=== PATIENT | female | born 1975 | race Caucasian/White ===

== ENCOUNTER 2017-07-25 15:54 | Emergency (ER) | payer OTHER ==
[2017-07-25 16:05] VITALS: TEMP 98.6
[2017-07-25] MEDS ORDERED: IPRATROPIUM/ALBUTEROL 3 ML DEYVIAL IH ONE (16:30)
--- NOTE | 2017-07-25 16:48 | EDPHY ---
H & P Time Seen by Provider: 07/25/17 16:10 HPI/ROS: The patient presents with a cough of 4 days duration dry and hacking in nature with mild wheezing. She has had episodes of reactive airway disease with URIs in the past and has used an albuterol inhaler in the past but does not have an MDI now. She notes no exacerbating factors for symptoms. She notes no other associated symptoms. She is a smoker and notes that her symptoms worsen when she smokes. She drove her self here by private vehicle for further evaluation. ROS: Constitutional: No fevers chills or fatigue. HEENT: No nasal congestion. No facial pain. No sore throat. Pulmonary: No pleuritic pain. No respiratory distress. Cardiovascular: No chest pain. No heart palpitations lightheadedness or or lower extremity swelling. GI: No abdominal pain, nausea vomiting Integumentary: No skin rash Neuro: No complaints 10 point ROS is otherwise negative. Smoking Status: Current every day smoker Physical Exam: Physical Exam Vital signs are normal. General: No acute distress HEENT: Nose: Clear discharge bilaterally. No sinus tenderness to percussion. Ears: External canals and tympanic membranes are clear with no erythema or abnormal findings bilaterally. Oropharynx: No erythema or exudates. No dysphonia. No drooling or stridor. Eyes: Pupils equal and react to light. Extraocular motions are intact. Neck: Supple with no meningismus. No lymphadenopathy Lungs: Wheezing bilaterally. No rhonchi. No rales. No respiratory distress. Cardiac: Regular rate and rhythm with no murmur gallop or rub no lower extremity swelling or calf tenderness. Skin: No rash or pallor. Neuro: Alert with no focal deficits noted. Initial differential diagnosis: URI with reactive airway disease, acute bronchitis, reactive airway disease Constitutional: Initial Vital Signs Temperature (C) 37 C 07/25/17 16:01 Heart Rate 72 07/25/17 16:01 Respiratory Rate 20 07/25/17 16:01 Blood Pressure 157/100 H 07/25/17 16:01 O2 Sat (%) 97 07/25/17 16:01 O2 Delivery Mode Room Air Allergies/Adverse Reactions: aspirin Allergy (Verified 07/25/17 16:06) INCREASED BLEEDING AND BRUISING Home Medications: Medication Instructions Recorded Abilify 06/17/16 IMITREX 04/27/16 Singulair 04/27/16 Topamax 04/27/16 Zoloft 100mg (RX) 04/27/16 Albuterol Hfa Anes Only [Proair 2 puffs IH Q4 PRN #1 mdi 07/25/17 Hfa Icu (*)] Azithromycin [Zithromax] 250 mg PO DAILY #6 tab 07/25/17 Fluticasone Hfa 220 Mcg [Flovent 2 puffs IH DAILY #1 mdi 07/25/17 220 MCG Hfa MDI (*)] Melatonin 07/25/17 MDM/Departure - MDM Medications Given: Discontinued Medications Albuterol/Ipratropium (Duoneb) 3 ml IH EDNOW ONE Stop: 07/25/17 16:31 Last Admin: 07/25/17 16:33 Dose: 3 ml Differential Diagnosis: DuoNeb with increased aeration decreased wheeze subjective improvement I counseled the patient to quit smoking. Will start her on Zithromax antibiotic, albuterol inhaler and Flovent steroid inhaler if her symptoms are not resolving this week. She understands the need to follow up with primary care physician. She will return if she develops any significant worsening symptoms despite the treatment plan Discussion: [age]-year-old female here with cough mild wheeze with no clinical evidence of lower respiratory infection, sepsis or other concerning findings at this time. - Depart Disposition: Home, Routine, Self-Care Clinical Impression: Acute bronchitis Qualifiers: Bronchitis organism: unspecified organism Qualified Code(s): J20.9 - Acute bronchitis, unspecified Condition: Good Instructions: How to Stop Smoking (ED), Acute Bronchitis (ED) Additional Instructions: Diagnosis: Acute bronchitis Plan: Quit smoking Humidifier Albuterol inhaler spacer for cough, wheeze or shortness of breath Zithromax antibiotic If you cough does not resolve with that treatment over the next week then start Flovent steroid inhaler in addition. Follow up with primary care physician for any ongoing symptoms and for help with smoking cessation. Return emergency department if he have any significant worsening despite the treatment plan Prescriptions: Albuterol Hfa Anes Only [Proair Hfa Icu (*)] 2 puffs IH Q4 PRN #1 mdi PRN Reason: Wheezing Azithromycin [Zithromax] 250 mg PO DAILY #6 tab Fluticasone Hfa 220 Mcg [Flovent 220 MCG Hfa MDI (*)] 2 puffs IH DAILY #1 mdi Referrals: FER MARTINEZ [Primary Care Provider] - As per Instructions
[2017-07-25 17:14] VITALS: BP 130/85; PULSE 80; RESP 16; O2SAT 98
== END 2017-07-25 17:07 | disposition home or self-care (01) ==
LOC: CED 15:54
DX: J20.9 Acute bronchitis, unspecified (principal); F17.200 Nicotine dependence, unspecified, uncomplicated

== ENCOUNTER 2017-08-02 14:35 | Emergency (ER) | payer OTHER ==
[2017-08-02 14:48] VITALS: RESP 18; TEMP 98; O2SAT 97
[2017-08-02] MEDS ORDERED: SUMAtriptan 6 MG/0.5 ML VIAL SC ONE (15:09)
[2017-08-02] MEDS ORDERED: AMOXICILLIN/CLAVULANATE POT 875/125 MG TAB PO ONE (15:10)
[2017-08-02] MEDS ORDERED: ONDANSETRON DISINTEGRATING 4 MG TAB PO ONE (15:10)
--- NOTE | 2017-08-02 15:11 | EDPHY ---
H & P Stated Complaint: c/o migraine ANGELO since this am - Time Seen by Provider: 08/02/17 14:56 HPI/ROS: CHIEF COMPLAINT: Sinus infection, migraine headache HISTORY OF PRESENT ILLNESS: The patient is a 41-year-old female who comes to the emergency department complaining of a migraine headache primarily in the left side of her head. She states that this is typical for her migraines. She ran out of her Imitrex today and did not realize it. She states that it usually works for the quickly for her. She thinks her migraine was triggered by a sinus infection. She states that for the last 2 weeks she has had a mild cough. She was seen and given a Z-Louis. The cough improved but then it developed into her left sinuses. She has been able to drain her right sinus with a Neti pot but not her left. She has pressure and pain in that area. No vision changes. No fever. REVIEW OF SYSTEMS: Constitutional: denies: chills, fever, recent illness, recent injury EENTM: See HPI Respiratory: denies: cough, shortness of breath Cardiac: denies: chest pain, irregular heart rate, lightheadedness, palpitations Gastrointestinal/Abdominal: denies: abdominal pain, diarrhea, nausea, vomiting, blood streaked stools Genitourinary: denies: dysuria, frequency, hematuria, pain Musculoskeletal: denies: joint pain, muscle pain Skin: denies: lesions, rash, jaundice, bruising Neurological: See HPI denies: numbness, paresthesia, tingling, dizziness, weakness Hematologic/Lymphatic: denies: blood clots, easy bleeding, easy bruising Immunologic/allergic: denies: HIV/AIDS, transplant EXAM: GENERAL: Well-appearing, well-nourished and in no acute distress. HEAD: Atraumatic, normocephalic. EYES: Pupils equal round and reactive to light, extraocular movements intact, sclera anicteric, conjunctiva are normal. ENT: Mild left sinus tenderness, TMs effusion on left, nares patent, oropharynx clear without exudates. Moist mucous membranes. NECK: Normal range of motion, supple without lymphadenopathy or JVD. LUNGS: Breath sounds clear to auscultation bilaterally and equal. No wheezes rales or rhonchi. HEART: Regular rate and rhythm without murmurs, rubs or gallops. ABDOMEN: Soft, nontender, normoactive bowel sounds. No guarding, no rebound. No masses appreciated. BACK: No CVA tenderness, no spinal tenderness, step-offs or deformities EXTREMITIES: Normal range of motion, no pitting or edema. No clubbing or cyanosis. NEUROLOGICAL: Cranial nerves II through XII grossly intact. Normal speech, normal gait. 5/5 strength, normal movement in all extremities, normal sensation PSYCH: Normal mood, normal affect. SKIN: Warm, dry, normal turgor, no visible rashes or lesions. Source: Patient Exam Limitations: No limitations - Personal History LMP (Females 10-55): Unknown Current Tetanus Diphtheria and Acellular Pertussis (TDAP): Yes - Medical/Surgical History Hx Asthma: Yes Hx Chronic Respiratory Disease: No Hx Diabetes: No Hx Cardiac Disease: No Hx Renal Disease: No Hx Cirrhosis: No Hx Alcoholism: No Hx HIV/AIDS: No Hx Splenectomy or Spleen Trauma: No Other PMH: THYROID, MIGRAINES, DEPRESSION, UTERINE ABLATION, ENDOMETRIOSIS, Lupus - Family History Significant Family History: No pertinent family hx - Social History Smoking Status: Current every day smoker Alcohol Use: Sober Drug Use: None Constitutional: Initial Vital Signs Temperature (C) 36.6 C 08/02/17 14:44 Heart Rate 85 08/02/17 14:44 Respiratory Rate 18 08/02/17 14:44 Blood Pressure 148/88 H 08/02/17 14:44 O2 Sat (%) 97 08/02/17 14:44 O2 Delivery Mode Room Air Allergies/Adverse Reactions: aspirin Allergy (Verified 07/25/17 16:06) INCREASED BLEEDING AND BRUISING Home Medications: Medication Instructions Recorded Abilify 04/27/16 IMITREX 04/27/16 Singulair 04/27/16 Topamax 04/27/16 Zoloft 100mg (RX) 04/27/16 Albuterol Hfa Anes Only [Proair 2 puffs IH Q4 PRN #1 mdi 07/25/17 Hfa Icu (*)] Fluticasone Hfa 220 Mcg [Flovent 2 puffs IH DAILY #1 mdi 07/25/17 220 MCG Hfa MDI (*)] Melatonin 07/25/17 Amoxicillin/Clavulanate Pot 875 mg PO BID #14 tab 08/02/17 [Augmentin 875Mg] Medical Decision Making ED Course/Re-evaluation: The patient has a migraine and she is requesting Imitrex. She states this is the only medication that works for her. I will give her some IM. She does not need a refill of her prescriptions. We also discussed the likelihood that her sinus infection is viral and this is why antibiotics did not work. She would like to try stronger antibiotic. We will try Augmentin . We discussed indications for returning. Differential Diagnosis: Partial list of the Differential diagnosis considered include but were not limited to; migraine, sinus infection and although unlikely based on the history and physical exam, I also considered pneumonia, intracranial infection. I discussed these differential diagnoses and the plan with the patient as well as the usual and expected course. The patient understands that the diagnosis is provisional and that in medicine we are not always correct and that further workup is often warranted. Usual and customary warnings were given. All of the patient's questions were answered. The patient was instructed to return to the emergency department should the symptoms at all worsen or return, otherwise to followup with the physician as we discussed. - Data Points Medications Given: Discontinued Medications Amoxicillin/Clavulanate Potassium (Augmentin 875mg) 875 mg PO EDNOW ONE PRN Reason: Protocol Stop: 08/02/17 15:11 Last Admin: 08/02/17 15:19 Dose: 875 mg Ondansetron HCl (Zofran Odt) 4 mg PO EDNOW ONE Stop: 08/02/17 15:11 Last Admin: 08/02/17 15:19 Dose: 4 mg Sumatriptan Succinate (Imitrex Sc Injection) 6 mg SC EDNOW ONE Stop: 08/02/17 15:10 Last Admin: 08/02/17 15:20 Dose: 6 mg Departure - Departure Disposition: Home, Routine, Self-Care Clinical Impression: Migraine Qualifiers: Migraine type: with aura Status migrainosus presence: without status migrainosus Intractability: not intractable Qualified Code(s): G43.109 - Migraine with aura, not intractable, without status migrainosus Sinusitis Qualifiers: Sinusitis location: maxillary Chronicity: acute Recurrence: non-recurrent Qualified Code(s): J01.00 - Acute maxillary sinusitis, unspecified Condition: Fair Instructions: Sinusitis (ED), Migraine Headache (ED) Referrals: FER MARTINEZ [Primary Care Provider] - As per Instructions Prescriptions: Amoxicillin/Clavulanate Pot [Augmentin 875Mg] 875 mg PO BID #14 tab
[2017-08-02 15:35] VITALS: BP 124/62; PULSE 74
== END 2017-08-02 15:33 | disposition home or self-care (01) ==
LOC: CED 14:35
DX: G43.109 Migraine with aura, not intractable, without status migrainosus (principal); J01.00 Acute maxillary sinusitis, unspecified; F17.200 Nicotine dependence, unspecified, uncomplicated; J45.909 Unspecified asthma, uncomplicated
CPT/HCPCS: J3030